=== PATIENT | female | born 1950 | race Caucasian/White ===

== ENCOUNTER → 2016-11-23 | Outpatient (CLI) | payer MEDICARE, OTHER | END | disposition home or self-care (01) | LOC: GMAH 14:20 | PROVIDERS: ATTEND Nurse Practitioner Family | DX: N30.00 Acute cystitis without hematuria (principal) ==

== ENCOUNTER 2017-06-07 05:06 | Inpatient (IN) | payer MEDICARE, OTHER ==
--- NOTE | 2017-06-07 05:16 | ED.PDOC ---
History of Present Illness - General Chief Complaint: GI Problem Stated Complaint: N/V Abd Pain Time Seen by Provider: 06/07/17 05:13 Information Source: patient Exam Limitations: no limitations - History of Present Illness Initial Comments: Lauryn Jeffrey 67 y/o female stated that she had multiple episodes of nausea/ vomiting since last night accompanied by abdominal crampings as well as leg cramps .Jens diarrhea,ill contact Abdominal Pain Onset Location: generalized abdomen Pain Radiation: no radiation Quality: cramping Timing/Duration: 4-6 hours Improving Factors: nothing Worsening Factors: eating Associated Symptoms: other - feeling bloated Review of Systems - Review of Systems Constitutional: States: no symptoms reported EENTM: States: no symptoms reported Respiratory: States: no symptoms reported Cardiology: States: no symptoms reported Gastrointestinal/Abdominal: States: see HPI Genitourinary: States: no symptoms reported Musculoskeletal: States: no symptoms reported Skin: States: no symptoms reported All other Systems: Reviewed and Negative, No Change from Baseline Past Medical History (General) - Patient Medical History Hx Seizures: No Hx Stroke: No Hx Dementia: No Hx Asthma: No Hx of COPD: No Hx Cardiac Disorders: Yes - Afib Hx Congestive Heart Failure: No Hx Pacemaker: No Hx Hypertension: Yes Hx Thyroid Disease: No Hx Diabetes: No Hx Gastroesophageal Reflux: Yes Hx Renal Disease: No Hx Cancer: No Hx of HIV: No Hx Hepatitis C: No Hx MRSA: No Hx Other PMH: Yes - protein c deficiency Surgical History: other - hysterectomy - Vaccination History Hx Tetanus, Diphtheria Vaccination: No Hx Influenza Vaccination: Yes Hx Pneumococcal Vaccination: No - Social History Hx Tobacco Use: Yes Hx Chewing Tobacco Use: No Hx Alcohol Use: Yes - 1 vodka q daily Hx Substance Use: No Hx Substance Use Treatment: No Hx Depression: No Hx Physical Abuse: No Hx Emotional Abuse: No Hx Suspected Abuse: No - Activities of Daily Living Grooming Ability: Independent Eating (Feeding) Ability: Independent Toileting Ability: Independent - Female History Patient : No Family Medical History - Family History Mother Living Status: Hx Family Congestive Heart Failure: Yes - parents Hx Cardiac Disease: Yes - afib Hx Family;Other: dvt Physical Exam - Physical Exam General Appearance: Alert, Comfortable, No apparent distress Eyes, Ears, Nose, Throat Exam: normal ENT inspection Neck: non-tender, supple, normal inspection Respiratory: chest non-tender, lungs clear, normal breath sounds, no respiratory distress Cardiovascular/Chest: normal peripheral pulses, regular rate, rhythm, no murmur Peripheral Pulses: No deficit Gastrointestinal/Abdominal: normal bowel sounds, non tender, soft, no organomegaly Back Exam: no CVA tenderness, no vertebral tenderness Extremity: no pedal edema, no calf tenderness Neurologic: alert, oriented x 3 Skin Exam: normal color, warm/dry Progress - Results/Orders Results/Orders: Vital Signs - 8 hr 06/07/17 05:10 Temperature 96.4 F L Pulse Rate [ 78 monitor] Respiratory 20 Rate Blood Pressure 150/73 [monitor] O2 Sat by Pulse 97 Oximetry 06/07/17 05:17 URINALYSIS Stat 06/07/17 05:30 EKG STAT Laboratory Results - last 24 hr 06/07/17 05:30 WBC 8.5 RBC 4.63 Hgb 14.2 Hct 42.5 MCV 91.7 MCH 30.7 MCHC 33.4 RDW 14.4 Plt Count 267 MPV 8.0 Absolute Neuts (auto) 7.30 H Absolute Lymphs (auto) 0.90 L Absolute Monos (auto) 0.30 Absolute Eos (auto) 0.00 Absolute Basos (auto) 0.00 Neutrophils % 85.7 H Lymphocytes % 10.2 L Monocytes % 3.6 Eosinophils % 0.1 L Basophils % 0.4 PT 25.8 H* INR 2.300 PTT (SP) 38.5 H Sodium 136 Potassium 3.1 L Chloride 98 L Carbon Dioxide 25 Anion Gap 16.1 BUN 12 Creatinine 0.60 BUN/Creatinine Ratio 20.0 Random Glucose 138 H Serum Osmolality 273.9 L Calcium 9.7 Magnesium 2.2 Total Bilirubin 0.6 Direct Bilirubin < 0.1 Indirect Bilirubin 0.5 AST 40 ALT 37 Alkaline Phosphatase 50 Creatine Kinase 200 H CK-MB (CK-2) 4.5 H CK-MB (CK-2) % 2.25 Troponin I < 0.02 Serum Total Protein 8.1 Albumin 5.0 Lipase 31 - EKG/XRAY/CT EKG: Sinus, nonspecific ST T wave Chg Comments: HR-78,LAE,IRBBB CT Ordered: Yes - abd/p-SBO Departure - Departure Clinical Impression: Abdominal cramps, Small bowel obstruction due to adhesions, Electrolyte disorder, History of atrial fibrillation, termination clerk (current) use of anticoagulants Nausea & vomiting Qualifiers: Vomiting type: unspecified Vomiting Intractability: unspecified Qualified Code( s): R11.2 - Nausea with vomiting, unspecified Time of Disposition: 06:44 Disposition: Admit Patient Condition: Good Departure Forms: Patient Portal Self Enrollment Referrals: Darrius Luevano MD [Primary Care Provider] - 1-2 Weeks Home Medications: Ambulatory Orders Calcium Carbonate-Vitamin D W/ [Calcium 1200] 1 chw PO DAILY 04/29/14 Cholecalciferol [Vitamin D3] 2,000 unit PO DAILY 04/29/14 Diltiazem HCl Coated Beads [Diltiazem Cd] 180 mg PO DAILY 04/29/14 Polyethylene Glycol 3350 [Miralax] 17 gm PO DAILY 04/29/14 Propafenone HCl 150 mg PO TID 04/29/14 Psyllium [Metamucil] 28.3 % PO DAILY 04/29/14 Warfarin Sodium 1.25 mg PO FR 04/29/14 Warfarin Sodium 2.5 mg PO SUMOTUWETHSA 04/29/14 Zoledronic Acid [Reclast] 5 mg IV ONCE 04/29/14 Rabeprazole Sodium 20 mg PO BID 01/24/15 Decision To Admit - Decistion To Admit Decision to Admit Reason: Admit from ER - sbo Decision to Admit Date: 06/07/17 - D/W Dr. Mcelroy-Surgeon and Dr. Rudd- hospitalist Decision to Admit Time: 06:38
[2017-06-07] MEDS ORDERED: SODIUM CHLORIDE 0.9% 1000ML 1,000 ML IVS ONE (05:17)
[2017-06-07] MEDS ORDERED: MORPHINE SULFATE INJ 10 MG/ML VIAL IV ONE ×2 (05:47→06:43)
[2017-06-07] MEDS ORDERED: PROMETHAZINE HCL INJ 25 MG/ML VIAL IM ONE (05:47)
--- NOTE | 2017-06-07 05:47 | CT ---
CT abdomen and pelvis without contrast on 06/07/2017 CLINICAL INDICATION: Generalized abdominal pain TECHNIQUE: Multiple axial images are obtained throughout the abdomen and pelvis without the administration of contrast. This study was performed with techniques to keep radiation doses as low as reasonably achievable, (ALARA). Total DLP is 463.28 mGy*cm. COMPARISON: 02/04/2016 FINDINGS: Abdomen: Stable tiny nodular density is noted in the left lung base most consistent with a benign etiology. Vascular calcifications are noted. There is a small left renal cyst. There are no renal or ureteral stones and no hydronephrosis. The unenhanced solid abdominal organs are otherwise unremarkable. There is no abdominal adenopathy. There is no free fluid or free air within the abdomen. There are dilated fluid-filled loops of mid small bowel with decompressed distal small bowel consistent with a small bowel obstruction. Transition point appears to be in the right lower quadrant most likely related to an adhesion. Pelvis: The patient is status post hysterectomy. There is diverticulosis. Pelvic portion of the GI tract is otherwise unremarkable. There is no free fluid in the pelvis. There is no pelvic adenopathy. Degenerative and postsurgical changes are noted in the spine. There is levoscoliosis of the lumbar spine. IMPRESSION: 1. Findings consistent with a small bowel obstruction most likely related to an adhesion. 2. Mild diverticulosis. Electronically signed by: Daniel Durand 06/07/2017 5:46 AM [employer] [employer] [employer]
[2017-06-07] MEDS ORDERED: LIDOCAINE 2 % GEL 5 ML TUBE TOP ONE (06:29)
[2017-06-07] MEDS ORDERED: LEVALBUTEROL NEBS 1.25 MG/3 ML VIAL INH PRN (06:59)
--- NOTE | 2017-06-07 07:23 | HP ---
SUPERVISING PHYSICIAN: Jorge Joshi MD CHIEF COMPLAINT: Abdominal pain with nausea and vomiting. HISTORY OF PRESENT ILLNESS: This is a 67-year-old female patient who had significant abdominal pain that started about 10 PM the night prior to her admission. She had played 18 holes of golf earlier that day. When she got home , she had a protein bar and was lying down. About 10 PM, she started having severe umbilical abdominal pain. It was very sharp and stabbing. It was continuous and it progressively worsened to the point where she came into the Emergency Room. She did not have any diarrhea, but she did complain of some nausea and vomiting with it. She has not had a good bowel movement in 2 to 3 days, but she has a significant history of constipation and she sees Dr. Beard for that. In the Emergency Room, WBCs were normal at 8.5, hemoglobin 14.2, hematocrit 42.5. INR 2.3. Chemistry showed sodium 136, potassium 3.1, chloride 98, carbon dioxide 25, BUN 12, creatinine 0.6, glucose 138, magnesium 2.2, creatinine kinase 200, CK-MB 4.5. Chest x-ray was obtained and showed enlargement of the cardiac silhouette without pulmonary vascular congestion. The tip of the nasogastric tube was in good position. There were no acute cardiopulmonary processes shown. Her CT of the abdomen showed findings consistent with a small bowel obstruction, most likely related to an adhesion and mild diverticulosis. The patient was admitted to the hospital and Dr. Mcelroy was consulted. PAST MEDICAL HISTORY: 1. Hypothyroidism presently on no medications. 2. Atrial fibrillation. 3. Osteoporosis. 4. Primary hypercoagulable state. 5. Gastroesophageal reflux disease. 6. TMJ syndrome. 7. Constipation. PAST SURGICAL HISTORY: 1. Hysterectomy. 2. Back surgery for scoliosis. OUTPATIENT MEDICATIONS: 1. Premarin. 2. Diltiazem. 3. AcipHex. 4. Metamucil. 5. Propafenone. 6. Reclast. 7. Warfarin. ALLERGIES: NO KNOWN DRUG ALLERGIES. FAMILY HISTORY: Positive for colonic polyps. SOCIAL HISTORY: She is . She does not smoke. She drinks alcohol on a social basis. There is no history of illicit drug use. REVIEW OF SYSTEMS: GENERAL: Negative for fever, fatigue or weight changes. HEENT: Negative for sinus symptoms, ear pain, vision changes or sore throat. RESPIRATORY: Negative for wheezing, coughing or shortness of breath. CARDIAC: Negative for chest pain, palpitations or tachycardia. GASTROINTESTINAL: As per history of present illness. GENITOURINARY: Negative for hematuria, dysuria or polyuria. NEUROLOGIC: Negative for headache, dizziness or seizures. PHYSICAL EXAMINATION: VITAL SIGNS: Afebrile. Heart rate 65. Blood pressure 115/72. Respiratory rate 18. O2 saturation 98% on room air. GENERAL: This is a 67-year-old female patient lying in her hospital bed. She is in no acute distress. HEENT: Normocephalic, atraumatic. She does have an NG tube in place to the left naris. Oropharynx is clear. Oral mucous membranes are moist. NECK: Supple without mass. RESPIRATORY: Essentially clear to auscultation bilaterally. CHEST: There is equal rise and fall of the chest with inspiration and expiration. CARDIOVASCULAR: Regular rate and rhythm. GASTROINTESTINAL: Abdomen is soft. She does have some mild tenderness centrally around the umbilicus. There is no rebound tenderness. Bowel sounds are positive. EXTREMITIES: No cyanosis, clubbing or edema. NEUROLOGIC: Awake, alert and oriented times three. LABORATORY: Labs and films are as per history of present illness. ASSESSMENT: 1. Umbilical abdominal pain, most likely due to a small bowel obstruction. 2. Constipation with a significant history of constipation. 3. Atrial fibrillation on Coumadin, Rythmol and Cardizem. 4. Mild hypokalemia. PLAN: We will admit the patient to the hospital. She is NPO and we will continue her NG tube per suctioning. Dr. Mcelroy has been consulted. We will re- start her home medications for now with the exception of Coumadin. Dr. Mcelroy has instructed us to clamp it after administration of her medications. I will put her on Lovenox for DVT prophylaxis. She is on Protonix for ulcer prophylaxis. Labs and films have been ordered for the AM. We will continue to monitor the patient closely and follow as needed. Dr. Joshi is the collaborating physician and available for consultation. #[id number] [facility]
--- NOTE | 2017-06-07 07:48 | RAD ---
EXAM DESCRIPTION: Chest,1 View CLINICAL HISTORY: SBO COMPARISON: November 21, 2009 IMPRESSION: Single AP portable upright view of the chest shows enlargement of the cardiac silhouette without pulmonary vascular congestion. There has been interval placement of a nasogastric tube. The tip seen in good positioning in the expected location of the stomach. This tube could be advanced another 1 to 2 in. for improved positioning. Lungs are mildly hyperinflated without acute infiltrate or consolidation. Moderate scoliosis of the spine is seen. Electronically signed by: Jose Antonio Jauregui MD 06/07/2017 7:47 AM [facility]
[2017-06-07] MEDS: IV SET AND CAP CHANGE INJ INJ SCH (08:47)
[2017-06-07] MEDS: LEVALBUTEROL NEBS 1.25 MG/3 ML VIAL INH SCH ×3 (09:00→20:09)
[2017-06-07] MEDS ORDERED: POTASSIUM CHLORIDE 20mEq 10ML VIAL IVPB ONE (09:00)
[2017-06-07] MEDS ORDERED: KCL 20MEQ/WATER FOR INJ 100ML 20 MEQ in PREMIX BAG 1 BAG IVPB ONE (09:06)
[2017-06-07] MEDS ORDERED: KCL 20MEQ/WATER FOR INJ 100ML 100 ML IVPB ONE (09:24)
[2017-06-07] MEDS: KCL 20MEQ/D5NS 1,000 ML IVS PRN ×2 (09:36→19:15)
[2017-06-07] MEDS: diltiaZEM HCL CD 180 MG CAP PO SCH (10:27)
[2017-06-07] MEDS: PROPAFENONE 150 MG TAB PO SCH ×4 (10:27→20:45)
--- NOTE | 2017-06-07 13:22 | CONS ---
DATE OF CONSULTATION: 06/07/17 HISTORY OF PRESENT ILLNESS: The patient is a 67-year-old female with a one-day history of crampy abdominal pain followed by nausea and vomiting and no fever or chills, no cough, no urinary symptoms. There is no history of previous episodes of like illness. She has not vomited any blood or coffee ground material. Her bowel movements have been normal, but that is chronic constipation for her. PAST MEDICAL HISTORY: 1. Gastroesophageal reflux disease. 2. Hypertension. 3. Hypothyroidism. 4. Atrial fibrillation. 5. Osteoporosis. PAST SURGICAL HISTORY: 1. Hysterectomy. 2. Surgery on her back for scoliosis. CURRENT MEDICATIONS: 1. Premarin. 2. Diltiazem. 3. Rabeprazole. 4. Metamucil. 5. Propafenone. 6. Reclast. 7. Warfarin. 8. AcipHex. 9. Calcification. 10. Vitamin D supplementation. ALLERGIES: NO KNOWN DRUG ALLERGIES. FAMILY HISTORY: Positive for colonic polyps. SOCIAL HISTORY: The patient is . She lives here in [place]. She does not smoke currently and has not for years. She drinks moderately on a generally daily basis. REVIEW OF SYSTEMS: Noncontributory except as in the history of present illness. There has also been no weight gain, weight loss, shortness of breath or chest pain. PHYSICAL EXAMINATION: GENERAL: The patient is awake, alert, cooperative, in mild distress. VITAL SIGNS: The patient is currently afebrile, normotensive. HEENT: Sclerae nonicteric. There is a nasogastric tube draining bile-stained fluid from her left nostril. Mucous membranes are generally moist. NECK: Without adenopathy. BACK: Without CVA tenderness. CHEST: Equal breath sounds bilaterally. HEART: Regular rhythm. ABDOMEN: Soft. There is mild tenderness in the right lower quadrant. Bowel sounds are active. PELVIC/RECTAL: Deferred. EXTREMITIES: Without cyanosis, clubbing or edema. LABORATORY: White count 8.5, hemoglobin 14, platelet count 267,000, 85% neutrophils. PT 25.8, INR 2.3, PT-T 38.5. Potassium 3.1, creatinine 0.60. Liver functions are within normal limits. CK is elevated at 200, CK-MB 4.5. Troponin within normal limits as is lipase. CT scan was consistent with a small bowel obstruction with a transition point in the right lower quadrant. She also has a large amount of stool throughout the colon. ASSESSMENT: 1. Abdominal pain, cramps, nausea and vomiting, hypokalemia, consistent with a small bowel obstruction. 2. Obstipation. 3. Atrial fibrillation. 4. Hypertension. PLAN: Nasogastric suction. We will also provide catharsis from below with enemas. Continue her medication except for warfarin. Begin Lovenox injections and follow the patient with routine lab and abdominal x-rays. [facility][id number] [facility]
[2017-06-07] MEDS ORDERED: PROMETHAZINE HCL INJ 25 MG/ML VIAL ONE (13:40)
[2017-06-07] MEDS ORDERED: SODIUM CHLORIDE 0.9% 50ML 50 ML ONE (13:41)
[2017-06-07] MEDS: PROMETHAZINE HCL INJ 25 MG in SODIUM CHLORIDE 0.9% 50ML 50 ML IVPB PRN (13:46)
[2017-06-07] MEDS: PANTOPRAZOLE SODIUM IV 40 MG VIAL IV SCH (13:55)
[2017-06-07] MEDS: MORPHINE SULFATE INJ 10 MG/ML VIAL IV PRN (19:15)
[2017-06-07] MEDS: ENOXAPARIN SODIUM 40 MG/0.4 ML SYG SUBCU SCH (20:45)
[2017-06-08] MEDS: KCL 20MEQ/D5NS 1,000 ML IVS PRN (04:05)
--- NOTE | 2017-06-08 08:06 | RAD ---
EXAM DESCRIPTION: Abdomen Flat Upright CLINICAL HISTORY: 67 years Female, fu bowel obstruction COMPARISON: CT performed yesterday. FINDINGS: Upright and supine views of the abdomen were obtained. An NG tube is present with its tip and distal side port in the proximal stomach. There is no lung base abnormality. No free subdiaphragmatic gas. Air-fluid levels are noted in several slightly dilated small bowel loops in the midabdomen. The degree of small bowel distention does not appear significantly changed from yesterday. There is a small amount of stool and gas in the colon, decreased from yesterday. Again seen are degenerative and postoperative changes in the thoracolumbar spine including S-shaped scoliosis. IMPRESSION: Abnormal bowel gas pattern consistent with small bowel obstruction, not significantly changed from yesterday's exam. NG tube in place with its tip and distal side port in the proximal stomach. Advancement should be considered. Electronically signed by: Emmett Hernandez MD 06/08/2017 8:05 AM CARDI[employer] NURSE SPECIALIST
[2017-06-08] MEDS: LEVALBUTEROL NEBS 1.25 MG/3 ML VIAL INH SCH ×3 (08:12→20:22)
[2017-06-08] MEDS: PROPAFENONE 150 MG TAB PO SCH ×3 (10:03→20:32)
[2017-06-08] MEDS: diltiaZEM HCL CD 180 MG CAP PO SCH (10:03)
[2017-06-08] MEDS ORDERED: KCL 30MEQ/D5 1/2NS 1,000 ML IVS ONE ×2 (11:13→19:21)
[2017-06-08] MEDS: KCL 30MEQ/D5 1/2NS 1,000 ML IVS PRN ×4 (11:13→19:22)
[2017-06-08] MEDS: PANTOPRAZOLE SODIUM IV 40 MG VIAL IV SCH (13:25)
--- NOTE | 2017-06-08 13:30 | PN ---
SUPERVISING PHYSICIAN: Jorge Joshi MD DATE: 06/08/17 SUBJECTIVE: The patient is lying in bed. She has no complaints of shortness of breath, nausea, vomiting, diarrhea. She is somewhat anxious and apprehensive about everything. Her agrees that she is not adjusting to the wait for her small bowel obstruction to open up. We discussed given her something for anxiety and they both agreed that that may be helpful. She saw Dr. Mcelroy earlier today and they have continued plans for monitoring of her small bowel obstruction. OBJECTIVE: VITAL SIGNS: Temperature 98.8. Pulse rate 93. Blood pressure 145/ 68. Respiratory rate 18. O2 saturation 96% on room air. RESPIRATORY: Essentially clear to auscultation bilaterally. CARDIAC: Regular rate and rhythm. GASTROINTESTINAL: Abdomen is soft, nondistended. Bowel sounds are positive. It is diffusely tender in the umbilical and right upper quadrant area. NEUROLOGIC: Awake, alert and oriented times three. LABORATORY: CBC is basically within normal limits. Sodium 141, potassium slightly better than yesterday at 3.2, chloride 107, carbon dioxide 26, BUN 9, creatinine 0.47, glucose 136. Abdominal x-ray shows abnormal bowel gas pattern consistent with small bowel obstruction, not significantly changed from yesterday. All other labs and films have been reviewed via the EMR. ASSESSMENT: 1. Umbilical abdominal pain, most likely due to a small bowel obstruction. 2. Constipation with a significant history of constipation, improved after administration of an enema. 3. Atrial fibrillation on Coumadin, Rythmol and Cardizem. 4. Mild hypokalemia, persists. PLAN: We will continue present supportive care. Dr. Mcelroy will follow for her GI issues. I have added some Ativan as needed for some anxiety. I also changed her IV fluids to D5 half normal saline with 30 of K. I will recheck her potassium in the morning. She is on Lovenox for DVT prophylaxis as well as Protonix for ulcer prophylaxis. She will continue to be NPO except for her medications. NG tube has been advanced approximately [address] Mcelroy's request. Otherwise, we will continue to monitor the patient closely and follow as needed. Dr. Joshi is the collaborating physician and available for consultation. [facility][id number] [facility]
[2017-06-08] MEDS: MORPHINE SULFATE INJ 10 MG/ML VIAL IV PRN ×2 (14:08→19:32)
[2017-06-08] MEDS ORDERED: BISACODYL SUPPOSITORY 10 MG PR ONE (15:44)
[2017-06-08] MEDS: ENOXAPARIN SODIUM 40 MG/0.4 ML SYG SUBCU SCH (20:32)
[2017-06-09] MEDS ORDERED: KCL 30MEQ/D5 1/2NS 1,000 ML IVS ONE ×3 (03:10→23:41)
[2017-06-09] MEDS: KCL 30MEQ/D5 1/2NS 1,000 ML IVS PRN ×6 (03:11→23:41)
--- NOTE | 2017-06-09 06:49 | RAD ---
Abdomen two view on 06/09/2017 CLINICAL INDICATION: Follow-up bowel obstruction COMPARISON: 06/08/2017 FINDINGS: There is scoliosis of the spine. Right-sided Khan salena is noted in the lower thoracic spine. NG tube extends into the stomach. There are again noted air-fluid levels with mildly dilated loops of small bowel in the left abdomen consistent with likely partial small bowel obstruction. There is no free air. Degenerative changes are noted in the spine. Calcification in the right pelvis is consistent with phlebolith. IMPRESSION: No significant change in small bowel obstruction. Electronically signed by: Daniel Durand 06/09/2017 6:48 AM [facility]
[2017-06-09] MEDS ORDERED: LIDOCAINE 1% 10 ML VIAL INJ ONE (07:00)
[2017-06-09] MEDS ORDERED: PROPOFOL 200 MG/20 ML VIAL IV ONE (07:00)
[2017-06-09] MEDS ORDERED: ONDANSETRON INJ 4 MG/2 ML VIAL ONE (07:00)
[2017-06-09] MEDS ORDERED: METOCLOPRAMIDE HCL INJ 10 MG/2 ML VIAL ONE (07:00)
[2017-06-09] MEDS ORDERED: DEXAMETHASONE INJ 10 MG/ML VIAL ONE (07:00)
[2017-06-09] MEDS ORDERED: ceFAZolin SODIUM 1 GM VIAL ONE (07:00)
[2017-06-09] MEDS ORDERED: NEOSTIGMINE METHYLSULFATE 1 MG/ML ML IV ONE (07:00)
[2017-06-09] MEDS ORDERED: SODIUM CHLORIDE 0.9% 50 ML VIAL ONE (07:00)
[2017-06-09] MEDS: LEVALBUTEROL NEBS 1.25 MG/3 ML VIAL INH SCH ×3 (07:15→22:31)
[2017-06-09] MEDS: diltiaZEM HCL CD 180 MG CAP PO SCH ×3 (09:57→15:32)
[2017-06-09] MEDS: PROPAFENONE 150 MG TAB PO SCH ×4 (09:57→21:37)
[2017-06-09] MEDS ORDERED: ROCURONIUM BROMIDE 10 MG/ML VIAL ONE (10:56)
[2017-06-09] MEDS ORDERED: LACTATED RINGERS 1,000 ML ONE (10:56)
[2017-06-09] MEDS ORDERED: LIDOCAINE 2 % GEL 5 ML TUBE TOP ONE (10:56)
[2017-06-09] MEDS ORDERED: fentaNYL CITRATE INJ 50 MCG/ML AMP ONE (10:56)
[2017-06-09] MEDS ORDERED: ceFAZolin SODIUM 1 GM VIAL IVPB ONE (11:20)
[2017-06-09] MEDS ORDERED: MORPHINE SULFATE INJ 10 MG/ML VIAL ONE (12:47)
--- NOTE | 2017-06-09 13:12 | OP ---
DATE OF PROCEDURE: 06/09/17 PREOPERATIVE DIAGNOSIS: 1. Small bowel obstruction. POSTOPERATIVE DIAGNOSIS: 1. Small bowel obstruction secondary to adhesions. PROCEDURE: 1. Exploratory laparotomy. 2. Lysis of adhesions. SURGEON: Dar Mcelroy MD. PETROLEUM GEOLOGIST: None. ANESTHESIA: General endotracheal anesthesia. INDICATION: The patient is a 67-year-old female who developed crampy abdominal pain with nausea and vomiting Tuesday. She was admitted through the Emergency Room early Tuesday morning. Nasogastric suction was applied and she had over 1000 mL the last two days, but she has continued to have mild discomfort and distention and her x-ray has improved little with continued dilated loops of small bowel with air-fluid levels. After the risks, benefits and alternatives to continued conservative measures versus exploration were discussed with the patient and her , their questions were answered and she was brought to the Surgical Suite today for the laparotomy. FINDINGS: There was a single band causing a restriction on the distal jejunum/ early ileum. There were other small adhesions of the omentum down into the pelvis which were lysed. No other pathology was identified. There was approximately 100 to 150 mL of clear, straw-colored, acidic fluid within the abdomen. No other pathology was identified. PROCEDURE: After adequate general endotracheal anesthesia was obtained, Abbott catheter was placed and the patient was prepped and draped in the usual sterile manner. Surgical time-out was taken noting that the patient had had IV Ancef preoperatively. A midline incision was made from above the umbilicus down to just above the pubis with a sharp knife. Dissection was carried down through the skin and subcutaneous tissue to the midline fascia using electrocautery and blunt dissection. The fascia was elevated and lysed. The peritoneum was then bluntly opened with a hemostat and then the dissection was carried through the length of the incision along with aspiration of the ascites. A retractor was placed. The dilated loops of bowel were identified and after identifying the ligament of Treitz and the proximal jejunum, the small bowel was milked proximally until the stomach was quite distended. The nasogastric tube was advanced a couple of inches and the stomach was aspirated. When this was done, the bowel was then followed distally. The single adhesion was lysed gently noting that there was an area of bowel that was pinked up immediately that had been lying under the loop. The bowel was then run and the remainder of the dilated bowel was milked back into the stomach again and aspirated. The bowel was then run from the ligament of Treitz to the ileocecal valve and no further adhesions to the small bowel were identified or strictures. At this point, the pelvis was inspected. The omentum was stuck down to the pelvis and this was lysed using electrocautery. No other pathology was identified with manual and visual inspection. At this point, the abdomen was irrigated copiously with saline. The effluent was noted to be slightly blood-tinged, but generally clear. At this point, the omentum and transverse colon was placed over the small bowel and the midline fascia was closed with a running #1 PDS from above and below. This was then tightened and tied. The knot was buried. The subcutaneous tissues were irrigated with saline. The skin edges were then approximated with a skin stapler. Sterile pressure dressing was applied. Abdominal binder was applied. The patient was awakened and taken to the Recovery Room in good and stable condition. Estimated blood loss was certainly less than 100 mL. Abbott catheter was left in placed will probably be discontinued in the morning. #[id number] [facility]
[2017-06-09] MEDS: PANTOPRAZOLE SODIUM IV 40 MG VIAL IV SCH (13:40)
[2017-06-09] MEDS: MORPHINE SULFATE INJ 10 MG/ML VIAL IV PRN ×4 (13:40→20:20)
--- NOTE | 2017-06-09 20:59 | PCM.CORE ---
Physician DVT/VTE - Nurse DVT Assessment & Total Each Risk Factor Represents 3 Points: Hx of DVT/PE Each Risk Factor Represents 2 Points: Age 60-74 Each Risk Factor Represents 1 Point: Hx Major Surgery <1month DVT Assessment Score: 6 - 5 or more Very High Risk Treatments: Early Ambulation *, Sequential Compression Device Pharmacological: Enoxaparin 40mg SQ Daily
[2017-06-09] MEDS: ENOXAPARIN SODIUM 40 MG/0.4 ML SYG SUBCU SCH (21:37)
[2017-06-10] MEDS: SODIUM CHLORIDE 0.9% (FLUSH) 10 ML SYG IV PRN (01:53)
[2017-06-10] MEDS: MORPHINE SULFATE INJ 10 MG/ML VIAL IV PRN ×5 (01:54→22:33)
[2017-06-10] MEDS ORDERED: KCL 30MEQ/D5 1/2NS 1,000 ML IVS ONE ×3 (07:49→19:51)
[2017-06-10] MEDS: KCL 30MEQ/D5 1/2NS 1,000 ML IVS PRN ×4 (07:59→16:49)
[2017-06-10] MEDS ORDERED: MAGNESIUM HYDROXIDE 30 ML UD NG ONE (08:45)
[2017-06-10] MEDS: diltiaZEM HCL CD 180 MG CAP PO SCH (09:05)
[2017-06-10] MEDS: PROPAFENONE 150 MG TAB PO SCH ×3 (09:05→20:31)
[2017-06-10] MEDS: IV SET AND CAP CHANGE INJ INJ SCH (09:06)
[2017-06-10] MEDS: PANTOPRAZOLE SODIUM IV 40 MG VIAL IV SCH (13:43)
[2017-06-10] MEDS: LEVALBUTEROL NEBS 1.25 MG/3 ML VIAL INH SCH ×2 (17:51→20:00)
[2017-06-10] MEDS: ENOXAPARIN SODIUM 40 MG/0.4 ML SYG SUBCU SCH (20:31)
[2017-06-11] MEDS: KCL 30MEQ/D5 1/2NS 1,000 ML IVS PRN ×6 (01:32→19:35)
[2017-06-11] MEDS: MORPHINE SULFATE INJ 10 MG/ML VIAL IV PRN ×4 (08:15→19:49)
[2017-06-11] MEDS: LEVALBUTEROL NEBS 1.25 MG/3 ML VIAL INH SCH ×3 (08:49→20:19)
[2017-06-11] MEDS: diltiaZEM HCL CD 180 MG CAP PO SCH (10:01)
[2017-06-11] MEDS: PROPAFENONE 150 MG TAB PO SCH ×3 (10:01→21:25)
[2017-06-11] MEDS ORDERED: KCL 30MEQ/D5 1/2NS 1,000 ML IVS ONE ×2 (10:37→19:30)
[2017-06-11] MEDS ORDERED: MAGNESIUM HYDROXIDE 30 ML UD PO ONE (11:47)
--- NOTE | 2017-06-11 11:56 | PN ---
DATE: 06/09/17 SUPERVISING PHYSICIAN: Jorge Joshi M.D. SUBJECTIVE: The patient was seen shortly after being taken from surgery. She was in stable condition. Her pain was well controlled. She has not had any complaints of nausea and was alert. OBJECTIVE: VITAL SIGNS: Temperature 98.7, pulse 92, blood pressure 147/86, respirations 16, satting 93% on room air. I's and O's showed a positive balance of 322 with 3022 in, 2700 out. Weight 61.1 kg. HEENT: The patient had a nasogastric tube in place to the left nares showing brownish/greenish drainage to wall suction. CHEST: Lungs were clear to auscultation. HEART: Regular rate and rhythm. ABDOMEN: Without any bowel sounds noted. Abdominal binder was in place. EXTREMITIES: No clubbing, cyanosis or edema. NEUROLOGIC: She was alert and oriented times three. LABORATORY: Chemistries showed normal electrolytes with potassium 3.6, BUN was less than 5, creatinine 0.49, magnesium 1.8. RADIOLOGY: Abdominal x-ray prior to surgery showed no significant change in small bowel obstruction. ASSESSMENT: 1. Immediate postoperative day zero for an exploratory laparotomy with lysis of adhesions for small bowel obstruction that was secondary to the adhesions with surgery performed by Dr. Mcelroy, general surgeon. 2. Constipation with a significant history of constipation, bur resolved prior to surgery. 3. History of atrial fibrillation previously on Coumadin, currently on Lovenox with the patient being resumed on her cardiac medications to include Rythmol and Cardizem with a controlled ventricular rate noted on bedside monitor. 4. Mild hypokalemia, improved with treatment. PLAN: Will continue to follow the patient postoperatively. Will defer to Dr. Mcelroy's decisions for further management until discharge and anticipate discharging at his discretion. Until then, will continue to monitor closely having resumed her home medications with close cardiac telemetry. She does remain stable in regards to cardiac function. She is again encouraged to ambulate as per Dr. Mcelroy's instructions. Will plan to reevaluate in the morning. Until then, continue to monitor and treat appropriately. #[id number] [facility]
--- NOTE | 2017-06-11 12:12 | PN ---
DATE: 06/10/17 SUPERVISING PHYSICIAN: Jorge Joshi M.D. SUBJECTIVE: The patient had a good night. She has had some actual gas. She does remain on an NG tube and NPO. She has had no nausea and has good pain control. Remains afebrile. OBJECTIVE: VITAL SIGNS: Temperature 98.1, pulse 77, blood pressure 120/78, respirations 17, satting 94% on room air. I's and O's show a positive balance of 400 with 2000 in, 1600 out. Weight is 60.2 kg. CHEST: Lungs were clear to auscultation. HEART: Regular rate and rhythm. ABDOMEN: Bowel sounds were present. Abdominal binding remains in place. She is diffusely tender but no rebound tenderness. EXTREMITIES: No clubbing, cyanosis or edema. NEUROLOGIC: She is alert and oriented times three. LABORATORY: Chemistries this morning show normal electrolytes with BUN of less than 5, creatinine 0.47, calcium 8.4. Liver functions show to be within normal limits. RADIOLOGY: No additional radiographic studies were completed this morning. ASSESSMENT: 1. Postoperative day #1 for an exploratory laparotomy with lysis of adhesions for small bowel obstruction that was secondary to the adhesions. 2. History of constipation. 3. Atrial fibrillation currently on Lovenox having been on Coumadin and having restarted Rythmol and Cardizem with the patient continuing to show good control in ventricular rate. 4. Mild hypokalemia, resolved with treatment. PLAN: Will continue to follow the patient along with Dr. Mcelroy and defer further management in regard to postoperative management. She remains with good control of her blood pressure and pain control. She is having some gas. The plan is at this point with Dr. Mcelroy's instructions as to continue with NPO status and try Milk of Magnesia with tube clamping as directed. Once she is having bowel movements will start to slowly advance diet. She is encouraged to ambulate which she is doing well with throughout the day. Once she shows to be stable, certainly the NG tube will be removed. Until then, will continue to low wall suction as per Dr. Mcelroy's instructions. Will anticipate discharge at Dr. Mcelroy's discretion. Until then, continue to monitor and treat appropriately. #[id number] [facility]
[2017-06-11] MEDS: PANTOPRAZOLE SODIUM IV 40 MG VIAL IV SCH (16:11)
--- NOTE | 2017-06-11 18:57 | PN ---
DATE: 06/11/17 SUPERVISING PHYSICIAN: Jorge Joshi M.D. SUBJECTIVE: The patient has been doing well. She has still not passed any gas but has been ambulating multiple times throughout the day. She has had good control of her pain. She has had no nausea. She is still having quite a bit of output through her NG tube. OBJECTIVE: VITAL SIGNS: Temperature 97.9, pulse 79, blood pressure 108/66, respirations 16, satting 96% on room air. I's and O's show a negative balance of 825 with 3000 in, 3825 out. Weight is 58.3 kg. HEENT: NG tube remains in place in the left nares to low wall suction with no complications noted. CHEST : Lungs are clear to auscultation. HEART: Regular rate and rhythm. ABDOMEN: Soft, non-tender. Positive bowel sounds. EXTREMITIES: No clubbing, cyanosis or edema. LABORATORY: No additional laboratory or radiographic studies were completed today. ASSESSMENT: 1. Postoperative day #2 for an exploratory laparotomy with lysis of adhesions for small bowel obstruction that was secondary to the adhesions. Surgery being performed by Dr. Mcelroy, general surgeon. 2. History of constipation. 3. Atrial fibrillation with controlled ventricular rate on Lovenox currently, having been on Coumadin and for rate control Rythmol and Cardizem showing to be stable. 4. Mild hypokalemia, improved and resolved with treatment. PLAN: Will continue to follow the patient with Dr. Mcelroy and defer pain management and further management surgically to Dr. Mcelroy. The plan at this point is to continue to clamp NG tube with utilizing Milk of Magnesia and await a bowel movement. When she ultimately, start advancing her diet. She is again encouraged to ambulate and utilize deep breathing exercise to prevent any postoperative complications. Will anticipate discharge at Dr. Mcelroy's discretion. Until then, continue to monitor and treat appropriately. #[id number] [facility]
[2017-06-11] MEDS: ENOXAPARIN SODIUM 40 MG/0.4 ML SYG SUBCU SCH (21:25)
[2017-06-12] MEDS ORDERED: KCL 30MEQ/D5 1/2NS 1,000 ML IVS ONE ×2 (07:44→20:45)
[2017-06-12] MEDS: KCL 30MEQ/D5 1/2NS 1,000 ML IVS PRN ×4 (07:47→20:48)
[2017-06-12] MEDS: MORPHINE SULFATE INJ 10 MG/ML VIAL IV PRN ×5 (07:48→20:13)
[2017-06-12] MEDS: LEVALBUTEROL NEBS 1.25 MG/3 ML VIAL INH SCH ×3 (08:21→20:24)
[2017-06-12] MEDS ORDERED: MAGNESIUM HYDROXIDE 30 ML UD NG ONE (09:04)
[2017-06-12] MEDS: PROPAFENONE 150 MG TAB PO SCH ×3 (09:13→20:52)
[2017-06-12] MEDS: diltiaZEM HCL CD 180 MG CAP PO SCH (09:13)
[2017-06-12] MEDS: PANTOPRAZOLE SODIUM IV 40 MG VIAL IV SCH (12:43)
--- NOTE | 2017-06-12 15:03 | PN ---
DATE: 06/12/17 SUPERVISING PHYSICIAN: Jorge Joshi M.D. SUBJECTIVE: The patient has not yet passed any gas. She has had good pain control. She remains afebrile. She has been ambulating multiple times of the day and is tolerating her NG tube without any nausea or vomiting. OBJECTIVE: VITAL SIGNS: Temperature 99.2, pulse 89, blood pressure 110/60, saturation 92% on room air. Respirations 18. I and O's show a positive balance of 100 with 2760 in, 2660 out. Weight is 58.3 kg. CHEST: Lungs are clear to auscultation. HEART: Regular rate and rhythm. ABDOMEN: Still continues to be tender with abdominal dressing and binder in place. Bowel sounds are active but somewhat hypo. NEUROLOGIC: Alert and oriented x 3. EXTREMITIES: No clubbing, cyanosis or edema. LABORATORY: No additional laboratory or radiographic studies were completed today. Her labs have been stable as well as her clinical condition. ASSESSMENT: 1. Postoperative day #3 for an exploratory laparotomy with lysis of adhesions for small bowel obstruction that was secondary to adhesions. Surgery being performed by Dr. Mcelroy, general surgeon. 2. History of constipation. 3. Atrial fibrillation with controlled ventricular rate on Lovenox currently, awaiting transition to Coumadin once she is able to take a normal diet and she continues with rate control with Rythmol and Cardizem showing to be stable. 4. Mild hypokalemia, resolved with treatment. . PLAN: We will continue to follow the patient with Dr. Mcelroy and await further management if needed. Today the plan is to follow with Dr. Mcelroy, he is to again clamp the NG tube for an amount of time and give a dose of milk of magnesia in efforts to help with bowel movements. She again is encouraged to ambulate as much as possible and to continue utilizing incentive spirometry and deep breathing exercises for any postoperative complications. Will anticipate discharge at Dr. Mcelroy's discretion and until that point, we will continue to monitor and treat appropriately. #[id number] [facility]
[2017-06-12] MEDS: ENOXAPARIN SODIUM 40 MG/0.4 ML SYG SUBCU SCH (20:52)
[2017-06-13] MEDS: MORPHINE SULFATE INJ 10 MG/ML VIAL IV PRN (05:22)
[2017-06-13] MEDS: IV SET AND CAP CHANGE INJ INJ SCH (06:45)
[2017-06-13] MEDS: LEVALBUTEROL NEBS 1.25 MG/3 ML VIAL INH SCH (08:19)
[2017-06-13] MEDS: PROPAFENONE 150 MG TAB PO SCH ×3 (08:59→21:35)
[2017-06-13] MEDS: diltiaZEM HCL CD 180 MG CAP PO SCH (08:59)
[2017-06-13] MEDS ORDERED: KCL 30MEQ/D5 1/2NS 1,000 ML IVS ONE (09:46)
[2017-06-13] MEDS: KCL 30MEQ/D5 1/2NS 1,000 ML IVS PRN ×2 (09:55)
[2017-06-13] MEDS: traMADol HCL 50 MG TAB PO PRN (09:57)
[2017-06-13] MEDS ORDERED: BISACODYL SUPPOSITORY 10 MG PR ONE (11:24)
[2017-06-13] MEDS: PANTOPRAZOLE SODIUM TAB 40 MG PO SCH (11:36)
[2017-06-13] MEDS ORDERED: LEVALBUTEROL NEBS 1.25 MG/3 ML VIAL NEB PRN (15:30)
--- NOTE | 2017-06-13 19:21 | PN ---
DATE: 06/13/17 SUPERVISING PHYSICIAN: Sebastien Victoria M.D. SUBJECTIVE: The patient has had her NG tube out today. She has started on clear liquids. She has been afebrile. She has been ambulating. She has had no further complaints and has not yet passed any gas or had a bowel movement. OBJECTIVE: VITAL SIGNS: Temperature 99.1, pulse 91, blood pressure 1101/60, respirations 18, satting 98% on room air. I's and O's show a positive balance of 646 with 3096 in, 2450 out. Weight is 58.3 kg. CHEST: Lungs are clear to auscultation. HEART: Regular rate and rhythm. ABDOMEN: Soft. Tender over the surgical site with incision showing to be clean and dry with jayne in place with no signs of infection. Bowel sounds were present. EXTREMITIES: No clubbing, cyanosis or edema. NEUROLOGIC: She is alert and oriented times three. LABORATORY: No laboratory or radiographic studies were completed today. ASSESSMENT: 1. Postoperative day #4 for an exploratory laparotomy with lysis of adhesions for small bowel obstruction that was secondary to adhesions with surgery being performed by Dr. Mcelroy, general surgeon. 2. History of constipation. 3. Atrial fibrillation with controlled ventricular rate on Lovenox currently, awaiting transition to Coumadin more likely in the morning as she is starting to take a diet, but she continues with good rate control with Cardizem and showing to be stable. 4. Mild hypokalemia on admission now at baseline after treatment. PLAN: Will continue to follow the patient along with Dr. Mcelroy. She has been started on clear liquids today. Will await Dr. Mcelroy's okay to start her back on her Warfarin at which time will transition her from Lovenox to Warfarin in anticipation of going home. She continues to have good incentive spirometry efforts and is doing well with ambulation. Will again anticipate discharge at Dr. Mcelroy's discretion. Until then, will continue to monitor and treat appropriately. #[id number] [facility]
[2017-06-13] MEDS: ENOXAPARIN SODIUM 40 MG/0.4 ML SYG SUBCU SCH (21:35)
[2017-06-14] MEDS ORDERED: KCL 30MEQ/D5 1/2NS 1,000 ML IVS ONE (02:38)
[2017-06-14] MEDS: KCL 30MEQ/D5 1/2NS 1,000 ML IVS PRN ×2 (02:53)
[2017-06-14] MEDS: PANTOPRAZOLE SODIUM TAB 40 MG PO SCH (06:05)
[2017-06-14] MEDS: diltiaZEM HCL CD 180 MG CAP PO SCH (08:58)
[2017-06-14] MEDS: PROPAFENONE 150 MG TAB PO SCH ×3 (08:58→20:38)
[2017-06-14] MEDS ORDERED: WARFARIN SODIUM 5 MG TAB PO SCH (12:00)
[2017-06-14] MEDS ORDERED: WARFARIN SODIUM 2.5 MG, WARFARIN SODIUM 1 MG PO ONE ×2 (13:37)
[2017-06-14] MEDS ORDERED: WARFARIN SODIUM 1 MG TAB ONE (13:51)
[2017-06-14] MEDS ORDERED: WARFARIN SODIUM 2.5 MG TAB ONE (13:52)
--- NOTE | 2017-06-14 15:06 | PN ---
SUPERVISING PHYSICIAN: Sebastien Victoria MD DATE: 06/14/17 SUBJECTIVE: The patient is sitting up in her hospital room. She has concerns about her Coumadin dose today. I explained to her that we are bridging her from Lovenox to Coumadin. I have spoken to her oncologist, Dr. Annalisa Saldivar, and her INR should be between 2.5 and 3. She understands we will give her 3.5 today and check her INR in the morning. Other than that, she has no complaints of nausea, vomiting, diarrhea or constipation. She does have some abdominal gas and she continues to pass it frequently. OBJECTIVE: VITAL SIGNS: Afebrile. Heart rate 86. Blood pressure 112/69. Respiratory rate 18. O2 saturation 96% on room air. RESPIRATORY: Essentially clear to auscultation bilaterally. CARDIAC: Regular rate and rhythm. GASTROINTESTINAL: Abdomen is soft, nondistended, nontender. She does have an abdominal binder in place. EXTREMITIES: No cyanosis, clubbing or edema. NEUROLOGIC: Awake, alert and oriented times three. LABORATORY: There are no labs or films to report today. ASSESSMENT: 1. Postoperative day #5 for an exploratory laparotomy with lysis of adhesions for small bowel obstruction, secondary to adhesions with surgery, being performed by Dr. Mcelroy, general surgeon. 2. History of constipation. 3. Atrial fibrillation with controlled ventricular rate, on Lovenox and bridging to Coumadin. 4. Mild hypokalemia on admission, now at baseline after treatment. PLAN: We will continue present supportive care. Surgical issues will be per Dr. Mcelroy. We plan to discharge the patient home tomorrow. I have spoken to Dr. Luevano, Dr. Victoria and Dr. Saldivar and we all agree that she will be started on 3.5 mg of Coumadin. We will recheck his INR in the morning. Dr. Saldivar would like her INR ranged from 2.5 to 3. We will resume her previous dosing at discharge. Dr. Saldivar's office will call tomorrow for INR results otherwise, we will repeat routine labs in the morning and follow as needed. Dr. Victoria is the collaborating physician and available for consultation. #[id number] [facility]
[2017-06-14] MEDS ORDERED: ALUMINUM & MAGNESIUM HYDROXIDE 30 ML UD PO PRN (16:51)
[2017-06-14] MEDS: traMADol HCL 50 MG TAB PO PRN (18:01)
[2017-06-14] MEDS: LORazepam 0.5 MG TAB PO PRN (18:02)
[2017-06-14] MEDS ORDERED: PROMETHAZINE HCL INJ 25 MG/ML VIAL ONE (19:40)
[2017-06-14] MEDS ORDERED: SODIUM CHLORIDE 0.9% 50ML 50 ML ONE (19:40)
[2017-06-14] MEDS: PROMETHAZINE HCL INJ 25 MG in SODIUM CHLORIDE 0.9% 50ML 50 ML IVPB PRN (19:49)
[2017-06-14] MEDS: SODIUM CHLORIDE 0.9% (FLUSH) 10 ML SYG IV PRN (19:53)
[2017-06-14] MEDS: ENOXAPARIN SODIUM 40 MG/0.4 ML SYG SUBCU SCH (20:38)
[2017-06-14] MEDS: SODIUM CHLORIDE 0.9% (FLUSH) 10 ML SYG IV SCH (20:39)
[2017-06-15] MEDS: LORazepam 0.5 MG TAB PO PRN ×2 (00:06→22:30)
[2017-06-15] MEDS: traMADol HCL 50 MG TAB PO PRN (00:06)
[2017-06-15] MEDS: ONDANSETRON INJ 4 MG/2 ML VIAL IV PRN ×2 (00:35→07:23)
[2017-06-15] MEDS: SODIUM CHLORIDE 0.9% (FLUSH) 10 ML SYG IV PRN (00:35)
[2017-06-15] MEDS: MORPHINE SULFATE INJ 10 MG/ML VIAL IV PRN (00:36)
[2017-06-15] MEDS ORDERED: SODIUM CHLORIDE 0.9% 1000ML 1,000 ML IVS PRN (00:47)
[2017-06-15] MEDS: PANTOPRAZOLE SODIUM TAB 40 MG PO SCH (06:19)
[2017-06-15] MEDS: SODIUM CHLORIDE 0.9% (FLUSH) 10 ML SYG IV SCH ×2 (07:24→21:15)
--- NOTE | 2017-06-15 07:41 | RAD ---
EXAM DESCRIPTION: Abdomen Flat Upright CLINICAL HISTORY: 67 years Female, Vomiting COMPARISON: June 09, 2017 FINDINGS: Two views of the abdomen demonstrate interval surgery with midline skin ajyne noted. Osteopenia and degenerative changes and moderate levoscoliosis of the spine is again noted. Numerous air-fluid levels and dilated small bowel loops in the right and left abdomen are present with an air-fluid level in the stomach. Pattern if anything is the same or slightly more prominent than previously seen. In this postoperative patient would favor this represents an abdominal ileus. Persistent or recurrent obstruction cannot be entirely excluded. IMPRESSION: Interval surgery with postoperative dilated small bowel with air-fluid levels. I would favor this represents a postoperative ileus with obstruction considered less likely possibility. Some gas within the rectum is noted. Electronically signed by: Sebastien Anaya MD 06/15/2017 7:40 AM [facility]
[2017-06-15] MEDS: diltiaZEM HCL CD 180 MG CAP PO SCH (08:40)
[2017-06-15] MEDS: PROPAFENONE 150 MG TAB PO SCH ×3 (08:40→21:15)
[2017-06-15] MEDS ORDERED: BISACODYL SUPPOSITORY 10 MG PR ONE (09:52)
[2017-06-15] MEDS ORDERED: MAGNESIUM HYDROXIDE 30 ML UD PO ONE (09:52)
[2017-06-15] MEDS ORDERED: PROMETHAZINE HCL INJ 25 MG/ML VIAL ONE ×2 (10:57→15:23)
[2017-06-15] MEDS ORDERED: SODIUM CHLORIDE 0.9% 50ML 50 ML ONE ×2 (10:57→15:23)
[2017-06-15] MEDS: PROMETHAZINE HCL INJ 25 MG in SODIUM CHLORIDE 0.9% 50ML 50 ML IVPB PRN ×2 (10:59→15:25)
[2017-06-15] MEDS ORDERED: PANTOPRAZOLE SODIUM IV 40 MG VIAL IV SCH (12:00)
[2017-06-15] MEDS ORDERED: WARFARIN SODIUM 2 MG TAB PO ONE (12:00)
[2017-06-15] MEDS: SODIUM CHLORIDE 0.9% 1000ML 1,000 ML IVS PRN (14:15)
[2017-06-15] MEDS ORDERED: ENOXAPARIN SODIUM 40 MG/0.4 ML SYG SUBCU ONE (21:00)
--- NOTE | 2017-06-15 21:51 | PN ---
DATE: 06/15/17 SUPERVISING PHYSICIAN: Sebastien Victoria M.D. SUBJECTIVE: The patient is lying in bed. She is asleep. Her is at the bedside. She awakens easily. No complaints of shortness of breath, nausea , vomiting, diarrhea or constipation. She did say she had nausea throughout the night last night but no longer has complaints of that since Dr. Mcelroy made her NPO. We discussed her INR results and hopefully she can be discharged tomorrow or the next day. OBJECTIVE: She is afebrile, heart rate 78, blood pressure 110/73, respiratory rate 20, O2 sat is 93% on room air. RESPIRATORY: Essentially clear to auscultation bilaterally. CARDIAC: Regular rate and rhythm. GASTROINTESTINAL: Abdomen is soft, nondistended. She has an abdominal binder in place. NEUROLOGIC: She is awake, alert and oriented times three. LABORATORY: WBCs are slightly elevated to 12.2 with hemoglobin at 11.8 and hematocrit of 34.4. PT was 19.5 with INR of 1.74. Sodium 137, potassium 3.6, chloride 100, carbon dioxide 27, BUN 17, creatinine 0.47, glucose 117. RADIOLOGY: Abdominal x-ray shows interval surgery with postoperative dilated small bowel with air-fluid levels, may be considered postoperative ileus with some gas within the rectum. All other labs and films have been reviewed via the EMR. ASSESSMENT: 1. Postoperative day #6 for an exploratory laparotomy with lysis of adhesions for small bowel obstruction, secondary to adhesions with surgery, being performed by Dr. Mcelroy, general surgeon. 2. Postoperative ileus. 3. History of constipation. 4. Atrial fibrillation with controlled ventricular rate, on Lovenox and bridging to Coumadin. 5. Mild electrolyte imbalance that has now corrected. PLAN: We will continue present supportive care. Operative issues will be per Dr. Mcelroy. He has made her NPO and will do an additional abdominal x-ray tomorrow. I will give her 4 mg of Coumadin tonight as well as her 40 mg of Lovenox. Will repeat an INR in the morning. If her INR is between 2.5 and 3, she can continue at her normal Coumadin dosing. Otherwise will continue to monitor the patient closely and follow as needed. Dr. Victoria is the collaborating physician available for consultation. #[id number] [facility]
[2017-06-16] MEDS: SODIUM CHLORIDE 0.9% 1000ML 1,000 ML IVS PRN ×2 (03:20→15:53)
[2017-06-16] MEDS: PANTOPRAZOLE SODIUM IV 40 MG VIAL IV SCH (06:33)
[2017-06-16] MEDS: diltiaZEM HCL CD 180 MG CAP PO SCH ×2 (09:30→15:24)
[2017-06-16] MEDS: SODIUM CHLORIDE 0.9% (FLUSH) 10 ML SYG IV SCH ×2 (09:30→20:41)
[2017-06-16] MEDS: PROPAFENONE 150 MG TAB PO SCH ×3 (09:30→20:40)
--- NOTE | 2017-06-16 10:56 | RAD ---
EXAM DESCRIPTION: Abdomen Flat Upright CLINICAL HISTORY: 67 years Female, ileus COMPARISON: June 15, 2017 FINDINGS: 2 AP views of the abdomen and pelvis show multiple slightly dilated gas-filled small bowel loops scattered throughout abdomen with a [id number] amount colonic stool and gas. Findings are consistent with provided history of ileus. Skin jayne are noted in the midline. Postoperative changes are noted in the thoracic spine without apparent hardware, dictation. Is mild to moderate S-shaped scoliosis. IMPRESSION: Abnormal bowel gas pattern consistent with provided history of ileus. Early or partial small bowel obstruction is a less likely consideration. If symptoms persist or worsen, CT could be performed for further evaluation. Overall, findings do not appear significantly changed from yesterday. Electronically signed by: Emmett Hernandez MD 06/16/2017 10:55 AM [facility]
[2017-06-16] MEDS: IV SET AND CAP CHANGE INJ INJ SCH (12:49)
[2017-06-16] MEDS: WARFARIN SODIUM 2 MG TAB PO SCH (12:49)
--- NOTE | 2017-06-16 15:34 | PN ---
DATE: 06/16/17 SUPERVISING PHYSICIAN: Sebastien Victoria M.D. SUBJECTIVE: The patient is walking in the hallways. She was seen and examined in her room. She has no complaints of nausea, vomiting, diarrhea or constipation. OBJECTIVE: VITAL SIGNS: She is afebrile, heart rate 79, blood pressure 100/66, respiratory rate 16, O2 sat is 93% on room air. I's and O's show a positive balance of 320. She has had 1 bowel movement. She has lost 0.6 kg since admission. RESPIRATORY: Essentially clear to auscultation bilaterally. CARDIAC : Regular rate and rhythm. NEUROLOGIC: She is awake, alert and oriented times three. LABORATORY: WBCs have normalized to 9.3 with a stable hemoglobin at 10.6 and hematocrit of 31.9, platelets 410. INR is 1.96. Sodium 137, potassium 3.6, chloride 100, carbon dioxide 27, BUN 17, creatinine 0.47, blood sugar is 112. RADIOLOGY: Abdominal x-ray per radiology interpretation shows abnormal bowel gas pattern consistent with provided history of ileus, earlier partial small bowel obstruction is less likely consideration. If symptoms persist or worsen, CT could be performed for further evaluation. Overall findings do not appear significantly changed from yesterday. All other labs and films have been reviewed via the EMR. ASSESSMENT: 1. Postoperative day #7 for an exploratory laparotomy with lysis of adhesions for small bowel obstruction, secondary to adhesions with surgery, being performed by Dr. Mcelroy, general surgeon. 2. Postoperative ileus. 3. History of constipation. 4. Atrial fibrillation with controlled ventricular rate, on Lovenox and bridging to Coumadin. 5. Mild electrolyte imbalance that Is now resolved. PLAN: We will continue with present supportive care. Operative issues will be per Dr. Mcelroy. She is presently on clear liquids and I have ordered an abdominal x-ray for tomorrow. She received 4 mg of Coumadin today and she will get her 40 mg of Lovenox tonight. I have put an INR for in the morning. Hopefully her INR will be between 2.5 and 3, and she can continue her normal Coumadin dosing. Plan for followup PT and INR once over the weekend and then she has a followup with Dr. Luevano on Tuesday. We will continue to monitor the patient closely and follow as needed. Dr. Victoria is the collaborating physician available for consultation. [facility][id number] [facility]
[2017-06-16] MEDS ORDERED: SODIUM CHLORIDE 0.65% NASAL SPRAY 45 ML BTTL BNAS PRN (16:47)
[2017-06-16] MEDS ORDERED: ENOXAPARIN SODIUM 40 MG/0.4 ML SYG SUBCU SCH (21:00)
[2017-06-17] MEDS: SODIUM CHLORIDE 0.9% 1000ML 1,000 ML IVS PRN (04:21)
[2017-06-17] MEDS: PANTOPRAZOLE SODIUM IV 40 MG VIAL IV SCH (06:11)
--- NOTE | 2017-06-17 06:54 | RAD ---
EXAM: SINGLE VIEW ABDOMEN RADIOGRAPH CLINICAL INDICATION: Ileus. Recent abdominal surgery. COMPARISON: Yesterday's abdomen radiographs. FINDINGS: Gas-filled distended bowel is improved significantly since yesterday's radiograph. No free peritoneal gas on this single supine view. IMPRESSION: Improving ileus. Electronically signed by: Johnathan López MD 06/17/2017 6:53 AM [facility]
[2017-06-17] MEDS: diltiaZEM HCL CD 180 MG CAP PO SCH (08:38)
[2017-06-17] MEDS: PROPAFENONE 150 MG TAB PO SCH ×3 (08:38→20:35)
[2017-06-17] MEDS: SODIUM CHLORIDE 0.9% (FLUSH) 10 ML SYG IV SCH ×2 (08:39→20:35)
[2017-06-17] MEDS: POLYETHYLENE GLYCOL 3350 17 GM PCKT PO SCH (10:37)
[2017-06-17] MEDS: WARFARIN SODIUM 2 MG TAB PO SCH (12:01)
[2017-06-17] MEDS: NON-FORMULARY MEDICATION 1 EA MIS PO SCH ×2 (12:04→20:33)
--- NOTE | 2017-06-17 13:10 | PN ---
SUPERVISING PHYSICIAN: Sebastien Victoria MD DATE: 06/17/17 SUBJECTIVE: The patient is sitting up in her bed. She is visiting with friends. She has no complaints of nausea, vomiting, diarrhea or constipation. We discussed her outpatient medications and as per Dr. Mcelroy, we are re-starting her Metamucil, MiraLAX and probiotics as well as advancing her diet. OBJECTIVE: VITAL SIGNS: Afebrile. Heart rate 83. Blood pressure 104/66. Respiratory rate 18. O2 saturation 94% on room air. RESPIRATORY: Essentially clear to auscultation bilaterally. CARDIAC: Regular rate and rhythm. GASTROINTESTINAL: Abdomen is soft, nondistended, nontender. Bowel sounds are positive. Abdominal binder is in place. NEUROLOGIC: Awake, alert and oriented times three. LABORATORY: INR 2.46. Abdominal x-ray per radiologic interpretation shows improving ileus. All other labs and films have been reviewed via the EMR. ASSESSMENT: 1. Postoperative day #8 for an exploratory laparotomy with lysis of adhesions for small bowel obstruction, secondary to adhesions from previous surgery , performed by Dr. Mcelroy, general surgeon. 2. Postoperative ileus, improved. 3. History of constipation. 4. Atrial fibrillation with controlled ventricular rate, previously on Lovenox and bridging to Coumadin. 5. Mild electrolyte imbalance, resolved. PLAN: We will continue present supportive care. Dr. Mcelroy has advanced her diet to regular and due to the ileus, we are progressing slowly. Plan for discharge from his point of view tomorrow. She is therapeutic on her Coumadin, so we will give 4 mg of Coumadin today and recheck her INR tomorrow. She will be discharged on her usual dosing of warfarin. She is encouraged to continue walking in the hallway. All operative issues will be per Dr. Mcelroy. I have also restarted her Metamucil 2 times a day as well as adding probiotic twice a day. We will continue to monitor the patient closely and follow as needed. Dr. Victoria is the collaborating physician and available for consultation. [facility][id number] [facility]
[2017-06-17] MEDS: BIFIDOBACTERIUM INFANTIS 4 MG CAP PO SCH (20:35)
[2017-06-18 03:24] VITALS: O2SAT 95
[2017-06-18] MEDS: PANTOPRAZOLE SODIUM IV 40 MG VIAL IV SCH (06:20)
[2017-06-18 06:25] VITALS: BP 109/71; TEMP 98.2
[2017-06-18] MEDS: diltiaZEM HCL CD 180 MG CAP PO SCH (09:44)
[2017-06-18] MEDS: BIFIDOBACTERIUM INFANTIS 4 MG CAP PO SCH (09:44)
[2017-06-18] MEDS: PROPAFENONE 150 MG TAB PO SCH (09:45)
[2017-06-18] MEDS: POLYETHYLENE GLYCOL 3350 17 GM PCKT PO SCH (09:45)
[2017-06-18] MEDS: NON-FORMULARY MEDICATION 1 EA MIS PO SCH (09:46)
--- NOTE | 2017-06-18 21:04 | DS ---
DISCHARGE DIAGNOSIS: 1. Postoperative day #[address] Dr[address] Dar Mcelroy, surgeon, for lysis of adhesions resulting in symptomatic small bowel obstruction failing to respond to conservative treatment. 2. Postoperative ileus, symptomatic showing improvement. 3. History of constipation. 4. Chronic atrial fibrillation with a controlled ventricular rate having been resumed on her Coumadin therapy. 5. Hypokalemia showing some improvement after supplementation. HISTORY OF PRESENT ILLNESS: This 67 year-old white female is admitted to the hospital from the Emergency Room because of significant abdominal pain with associated nausea and vomiting. She is usually pretty active but has had some significant umbilical abdominal pain sharp and stabbing in character prior to her admission to the Emergency Room. No significant diarrhea. History of constipation being followed in the GI clinic with Dr. Beard for those symptoms. In the Emergency Room, she was found to have CT scan indication of a significant small bowel obstruction probably from an adhesion with some mild diverticulosis noted. The patient was admitted to the hospital and Dr. Mcelroy, general surgeon, was consulted who assisted with ongoing followup and decision processing. The patient was placed on GI rest and was observed closely until 04/28 when she was taken to an exploratory laparotomy for lysis of adhesions performed by Dr. Mcelroy. It was well tolerated. After the surgery, she did have a prolonged period of difficulty with ileus until able to get bowel tones activity more normalized and able to slowly advance her diet until the point that she was stabilized enough to be able to continue her care in the outpatient at home. LABORATORY: White count was up to 12,200 but was 9,300 at discharge. Hemoglobin was down to 10.6 with followup suggested. Her INR was therapeutic when she came in and was back to a therapeutic level at the time of discharge with Coumadin to be continued. Chemistry showed potassium was 3.1 with supplement increasing up to 3.6. BUN was 17 with creatinine of 0.47 at discharge. Glucose 112, calcium 8.8. Liver enzymes were normal. Troponin was zero. Albumin was 3.3. Lipase 31. Urinalysis showed some hematuria with a trace of pyuria with rare bacteria. No cultures obtained. RADIOLOGY: CT scan of the abdomen and pelvis did show evidence of small bowel obstruction with transition point in the right lower quadrant probably related to adhesions. HOSPITAL COURSE: The patient eventually recovered as the postoperative ileus was slowly improved with ongoing medical and surgical observation and stabilization. She was ready to continue with outpatient management at the time of discharge. PLAN: The patient is discharged home to have followup with Dr. Luevano on Tuesday , 06/21/17 at 9:00 AM. To have an INR ProTime at that time to assist with ongoing control of her Coumadin therapy. She will followup with Dr. Mcelroy after getting an appointment time by calling his office this next Tuesday. Encourage increased activity, plenty of fluid intake. Avoid constipation. Close followup with Dr. Leuvano and Dr. Saldivar for her INR stabilization. Return if not improving. #[id number] [facility]
== END 2017-06-18 11:32 | disposition home or self-care (01) | DRG 336 ==
LOC: ER 05:06 → MS 07:17
PROVIDERS: ADMIT Nurse Practitioner Acute Care; ATTEND Emergency Medicine
PROC: 0DNA0ZZ Release Jejunum, Open Approach (ICD-10-PCS; 2017-06-09)
PROC: 0DNU0ZZ Release Omentum, Open Approach (ICD-10-PCS; 2017-06-09)
PROC: 0DNB0ZZ Release Ileum, Open Approach (ICD-10-PCS; principal; 2017-06-09 11:04)
DX: K56.51 Intestinal adhesions [bands], with partial obstruction (principal); D68.59 Other primary thrombophilia; E87.6 Hypokalemia; K56.7 Ileus, unspecified; K57.30 Diverticulosis of large intestine without perforation or abscess without bleeding; E03.9 Hypothyroidism, unspecified; I48.91 Unspecified atrial fibrillation; I10 Essential (primary) hypertension; M81.0 Age-related osteoporosis without current pathological fracture; K21.9 Gastro-esophageal reflux disease without esophagitis; K59.00 Constipation, unspecified; Z79.83 Long term (current) use of bisphosphonates; Z79.899 Other long term (current) drug therapy; Z79.01 Long term (current) use of anticoagulants

== ENCOUNTER → 2017-08-11 | Outpatient (CLI) | payer OTHER | LOC: LAB.O 08:50 | PROVIDERS: ATTEND Internal Medicine Hematology & Oncology | DX: D68.51 Activated protein C resistance (principal) ==

== ENCOUNTER → 2018-06-27 | Outpatient (CLI) | payer OTHER | LOC: GMAL 11:05 | PROVIDERS: ATTEND Family Medicine | DX: D51.3 Other dietary vitamin B12 deficiency anemia (principal); E03.9 Hypothyroidism, unspecified; E55.9 Vitamin D deficiency, unspecified ==

== ENCOUNTER → 2018-10-11 | Outpatient (CLI) | payer OTHER ==
--- NOTE | 2018-10-13 14:09 | MRI ---
EXAM DESCRIPTION: Lumbar Spine w/o Contrast : Magnetic Resonance Imaging. CLINICAL HISTORY: LOW BACK PAIN COMPARISON: MRI scan lumbar spine 01/03/2015. TECHNIQUE: Multiplanar, multiple standard sequences, non contrast MRI, lumbar spine. FINDINGS: L5-S1: Disc desiccation with disc space maintained. Tiny disc bulge. Grade 1 anterolisthesis 2 mm. Marked hypertrophic arthrosis left facet and minimal arthrosis right facet narrowing the lateral canal. AP canal diameter 11 mm. Left moderate to severe foraminal narrowing, moderate foraminal narrowing right. Stable since the prior study. L4-L5: Disc desiccation with disc space maintained. Trace anterolisthesis. Tiny posterior broad-based bulge. Bilateral hypertrophic facet arthrosis with flavum ligament thickening more left than right. AP canal diameter 12 mm. Moderate to severe left foraminal narrowing and mild right foraminal narrowing. This has progressed since the prior study. L3-L4: Disc desiccation minimal disc space loss. Trace anterolisthesis. Posterior minimal broad-based disc bulge. Bilateral hypertrophic facet arthrosis and flavum thickening. Marked thickening of the posterior and anterior right facet which is encroaching on the foramen with severe stenosis and compromise exiting right L3 nerve. Minimal effacement of the left subarticular recess. Moderate narrowing of the left foramen. Circumscribed hyperintense T1 and T2 signal in the left L3 vertebral body representing a hemangioma. L2-L3: Disc desiccation and anterior bulging and anterior spurs. Trace retrolisthesis. Spondylosis in the midline into the right of midline. Hypertrophic changes in the facet joints and ligament thickening more right than left. Canal is patent. Facet hypertrophy and endplate bulging resulting in severe right foraminal narrowing. Mild to moderate narrowing of the left foramen. L1-L2: Disc space loss with disc desiccation anterior disc space loss more with anterior bulging and endplate ridging. No significant posterior bulge. Minimal facet arthrosis and ligament thickening and canal is patent. Moderate to severe foraminal narrowing right. Mild to moderate narrowing left. Conus terminates posterior to the L1 vertebral body. T12-L1 disc space maintained normal signal in the disc. No bulging. Right foraminal patent. Mild narrowing of the left foramen. Marked L2-L4 levoscoliosis. L4 S1 and T11 L2 dextroscoliosis. Paravertebral soft tissues muscle atrophy paraspinal right more than left, and also psoas muscles.. Otherwise normal marrow signal in the remaining vertebral bodies and the posterior elements. Vertebral bodies are not compressed at any level. IMPRESSION: 1. Marked levoscoliosis mid lumbar spine with significant hypertrophic facet arthrosis and flavum ligament thickening at multiple levels. Also spondylolisthesis at multiple levels. Also spondylosis of the disc spaces on the concave side of the scoliotic curve. No herniated discs. 2. Moderate canal narrowing L5-S1 moderate to severe left foraminal narrowing. Stable since the prior study. 3. Moderate severe left foraminal narrowing at L4-5 with hypertrophic facet and ligament thickening on the left. Increased since the prior study. 4. Severe right foraminal stenosis caused by endplate spurs and facet arthrosis at L3-4. This is progressed since the prior study. 5. Severe right foraminal narrowing on the concave side of the scoliosis at L2-L3 caused by endplate spur and facet arthrosis. Increased since the prior study. 6. Moderate to severe right foraminal narrowing at L1-L2. This has progressed since the prior study. Electronically signed by: Keith Flores MD 10/13/2018 2:07 PM CDT
== END ==
LOC: MRI 13:49
PROVIDERS: ATTEND Family Medicine
DX: M41.86 Other forms of scoliosis, lumbar region (principal); M48.062 Spinal stenosis, lumbar region with neurogenic claudication; M47.896 Other spondylosis, lumbar region

== ENCOUNTER → 2019-01-03 | Outpatient (CLI) | payer OTHER | LOC: GMAL 10:11 | PROVIDERS: ATTEND Family Medicine | DX: E53.8 Deficiency of other specified B group vitamins (principal); E78.5 Hyperlipidemia, unspecified; Z79.899 Other long term (current) drug therapy ==

== ENCOUNTER → 2019-01-25 | Outpatient (CLI) | payer OTHER ==
--- NOTE | 2019-01-25 15:21 | RAD ---
EXAM DESCRIPTION: Ankle,Right 3 Views CLINICAL HISTORY: 68 years Female, LOCALIZED SWELING, MASS AND LUMP COMPARISON: None available. TECHNIQUE: AP, oblique and lateral radiographs. FINDINGS: The visualized bones appear poorly mineralized. No acute fracture or dislocation. The ankle mortise is intact. The soft tissues appear grossly unremarkable. IMPRESSION: Mild osteopenia. No acute abnormality. Electronically signed by: Winnie Lucas MD 01/25/2019 3:19 PM CDT
== END ==
LOC: RAD 08:02
PROVIDERS: ATTEND Orthopaedic Surgery
DX: R22.9 Localized swelling, mass and lump, unspecified (principal); M85.871 Other specified disorders of bone density and structure, right ankle and foot

== ENCOUNTER → 2019-11-07 | Outpatient (CLI) | payer OTHER ==
--- NOTE | 2019-11-07 16:32 | CT ---
EXAM DESCRIPTION: Chest w/o Contrast CLINICAL HISTORY: 69 years Female, OTHER VAIRAL PNEUMONIA COMPARISON: Chest x-ray dated May TECHNIQUE: Transaxial images were obtained without intravenous contrast media. Sagittal and coronal reconstruction was performed.This exam was performed according to our departmental dose-optimization program, which includes automated exposure control, adjustment of the mA and/or kV according to patient size and/or use of iterative reconstruction technique. FINDINGS: A marked right thoracic scoliosis is observed. A Khan compression salnea is observed in the thoracic spine. The thyroid is normal in appearance. No pathologic axillary adenopathy is observed. No hilar or mediastinal adenopathy is seen. Some coronary artery calcification is observed. No pleural fluid is identified. No adrenal masses are detected. A calcified granulomas observed in the lingula. IMPRESSION: A marked right thoracic scoliosis is observed. The chest is otherwise unremarkable. Electronically signed by: Catrachito Zavala MD 11/07/2019 4:30 PM CDT
== END ==
LOC: CT 09:05
PROVIDERS: ATTEND Family Medicine
DX: J12.89 Other viral pneumonia (principal); M41.9 Scoliosis, unspecified

== ENCOUNTER → 2020-01-14 | Outpatient (CLI) | payer OTHER | LOC: GMAL 10:48 | PROVIDERS: ATTEND Family Medicine | DX: D51.3 Other dietary vitamin B12 deficiency anemia (principal); E55.9 Vitamin D deficiency, unspecified; E03.9 Hypothyroidism, unspecified; Z79.899 Other long term (current) drug therapy; E78.5 Hyperlipidemia, unspecified ==